=== PATIENT | female | born 1940 | race Caucasian/White ===

== ENCOUNTER 2023-04-24 12:37 | Emergency (ER) | payer MEDICARE ==
[~2023-04-24] VITALS: Ht 154.9 cm; Wt 44.6 kg
[~2023-04-24 12:37] MED LIST: ATENOLOL50 MG PO; CLEOCIN HCL300 MG PO; NORVASC5 MG PO; ZESTRIL40 MG PO
[2023-04-24] MEDS ORDERED: FAMCICLOVIR500 MG PO (16:22)
[2023-04-24 16:37] VITALS: BP 182/91
== END 2023-04-24 16:37 | disposition home or self-care (01) ==
LOC: ED 12:37
DX: B02.9 Zoster without complications (principal); I10 Essential (primary) hypertension; Z79.899 Other long term (current) drug therapy; Z79.01 Long term (current) use of anticoagulants
CPT/HCPCS: 99283